=== PATIENT | female | born 1955 | race Native Hawaiian/Other Pacific Islander ===

== ENCOUNTER 2017-05-06 08:50 | Outpatient (CLI) | payer BC ==
[~2017-05-06] VITALS: Ht 165.1 cm; Wt 108.9 kg
== END 2017-05-06 11:00 | disposition home or self-care (01) ==
LOC: NM 08:50
DX: R94.31 Abnormal electrocardiogram [ECG] [EKG] (principal); R07.89 Other chest pain; R06.09 Other forms of dyspnea
CPT/HCPCS: 93306; A9500; J2785